=== PATIENT | female | born 1975 | race Caucasian/White ===

== ENCOUNTER 2020-12-04 17:30 | Emergency (ER) | payer OTHER ==
[2020-12-04 17:36] VITALS: BP 149/88; PULSE 96; TEMP 99.1; BMI 41.1
[2020-12-04] MEDS ORDERED: DEXAMETHASONE SOD PHOSPHATE 10 MG/1 ML VIAL IM ONE (18:00)
[2020-12-04] MEDS ORDERED: DEXAMETHASONE SOD PHOSPHATE 10 MG/1 ML VIAL ONE (18:10)
== END 2020-12-04 18:25 | disposition home or self-care (01) ==
LOC: JER 17:30 → JERFT 17:30
PROC: 3E023GC Introduction of Other Therapeutic Substance into Muscle, Percutaneous Approach (ICD-10-PCS; principal; 2020-12-04)
DX: J30.2 Other seasonal allergic rhinitis (principal)
CPT/HCPCS: 99284-25; J1100

== ENCOUNTER 2021-08-13 11:57 | Emergency (ER) | payer OTHER ==
[2021-08-13 13:00] VITALS: BP 134/74; PULSE 93; TEMP 98.8; BMI 30.7
[2021-08-14 20:07] LABS: SARS-CoV-2 NAA Detected (Not Detected)
== END 2021-08-13 14:27 | disposition home or self-care (01) ==
LOC: JER 11:57
DX: U07.1 COVID-19 (principal)
CPT/HCPCS: 71045-TC-FY; 99284-25; C9803-CS; U0003; U0005

== ENCOUNTER 2022-08-25 17:54 | Emergency (ER) | payer OTHER ==
[2022-08-25 17:59] VITALS: BP 150/88; PULSE 98; RESP 18; TEMP 97; BMI 43.0
[2022-08-25 20:47] LABS: HIV INTERPRETATION NEGATIVE (NEGATIVE)
== END 2022-08-25 20:38 | disposition left against medical advice (07) ==
LOC: JER 17:54 → JERFT 17:54
DX: Z20.6 Contact with and (suspected) exposure to human immunodeficiency virus [HIV] (principal)
CPT/HCPCS: 36415; 87389; 99283-25

== ENCOUNTER 2023-09-08 22:32 | Emergency (ER) | payer OTHER ==
[~2023-09-08 22:32] MED LIST: LIDOCAINE PATCH REMOVAL MC SCH
[2023-09-08 22:47] VITALS: BP 121/84; PULSE 85; RESP 18; TEMP 98; BMI 43.1
[2023-09-08] MEDS ORDERED: METHOCARBAMOL 500 MG TABLET PO ONE (23:09)
[2023-09-08] MEDS ORDERED: IBUPROFEN 600 MG TABLET (FP) PO ONE ×2 (23:09→23:20)
[2023-09-08] MEDS ORDERED: METHOCARBAMOL 500 MG TABLET ONE (23:20)
[2023-09-08] MEDS ORDERED: LIDOCAINE 5% TOPICAL PATCH TP ONE (23:39)
[2023-09-08] MEDS ORDERED: LIDOCAINE 4% PATCH TP ONE (23:49)
== END 2023-09-09 02:29 | disposition left against medical advice (07) ==
LOC: JER 22:32
DX: M79.604 Pain in right leg (principal); R20.0 Anesthesia of skin
CPT/HCPCS: 73552-TC-RT-FY; 99283-25